=== PATIENT | male | born 1950 | race Caucasian/White ===

== ENCOUNTER 2016-02-10 08:04 | Emergency (ER) | payer MEDICARE ==
[2016-02-10 08:12] VITALS: BP 153/95; PULSE 92; RESP 18; TEMP 97.9; O2SAT 100
== END 2016-02-10 09:09 | disposition home or self-care (01) | DRG 607 ==
LOC: ED 08:04
DX: L90.5 Scar conditions and fibrosis of skin (principal); E11.9 Type 2 diabetes mellitus without complications
CPT/HCPCS: 99282

== ENCOUNTER 2016-04-26 12:54 | Emergency (ER) | payer MEDICARE ==
[2016-04-26 12:12] LABS: ALBUMIN 2.9 gm/dl (3.4-5.0); CALCIUM 8.4 mg/dl (8.5-10.1); POTASSIUM 4.4 mMol/L (3.5-5.1)
[2016-04-26] MEDS ORDERED: SODIUM CHLORIDE 0.9% 1000ML 1,000 ML IV NR (13:45)
[2016-04-26] MEDS ORDERED: SODIUM CHLORIDE 0.9% FLUSH 10 ML SOL IV PRN (13:55)
[2016-04-26 13:58] LABS: MAGNESIUM 1.7 mg/dl (1.8-2.4); PHOSPHORUS 3.6 mg/dl (2.6-4.7)
[2016-04-26 14:05] LABS: ABG PH 7.46 (7.35-7.45)
[2016-04-26] MEDS ORDERED: ACETAMINOPHEN 500 MG 500 MG TAB PO ONE (14:09)
[2016-04-26] MEDS ORDERED: ACETAMINOPHEN 500 MG 500 MG TAB ONE (14:11)
[2016-04-26 15:35] LABS: HEMOGLOBIN A1C 11.8 % (4.8-6.0)
[2016-04-26 15:41] VITALS: O2SAT 100
[2016-04-26 15:44] VITALS: BP 99/53; PULSE 92; RESP 20; TEMP 99.3
== END 2016-04-26 15:33 | disposition home or self-care (01) | DRG 638 ==
LOC: ED 12:54
DX: E11.65 Type 2 diabetes mellitus with hyperglycemia (principal); E87.1 Hypo-osmolality and hyponatremia; E11.621 Type 2 diabetes mellitus with foot ulcer; L97.821 Non-pressure chronic ulcer of other part of left lower leg limited to breakdown of skin; L97.811 Non-pressure chronic ulcer of other part of right lower leg limited to breakdown of skin; L97.512 Non-pressure chronic ulcer of other part of right foot with fat layer exposed; L03.031 Cellulitis of right toe
CPT/HCPCS: 36600; 73630; 80048; 82040; 82803; 82962; 83036; 83735; 84100; 96365; 99214; 99284

== ENCOUNTER 2016-04-27 11:40 | Inpatient (IN) | payer MEDICARE ==
[2016-04-27 12:27] LABS: HEMATOCRIT 37 % (39-53); MEAN CORPUSCULAR HGB CONC 34.6 gm/dl (32.0-36.0); MEAN CORPUSCULAR VOLUME 86 fL (80-100)
[2016-04-27 12:36] LABS: ALBUMIN 2.8 gm/dl (3.4-5.0); CALCIUM 8.1 mg/dl (8.5-10.1); POTASSIUM 4.4 mMol/L (3.5-5.1)
[2016-04-27] MEDS ORDERED: PATIENT EDUCATION 1 MISC PRN (13:07)
[2016-04-27] MEDS ORDERED: VANCOMYCIN HYDROCHLORIDE 500 MG PDS IV ONE (13:40)
[2016-04-27] MEDS ORDERED: SODIUM CHLORIDE 0.9% 250 ML 250 ML IV ONE (13:41)
[2016-04-27] MEDS ORDERED: HUMALOG PEN 100 U/ML SC STA (13:51)
[2016-04-27 14:02] LABS: BASOPHILS % (MANUAL) 0 % (0-3); EOSINOPHILS % (MANUAL) 0 % (0-9); LYMPHOCYTES % (MANUAL) 11 % (10-50); NORMAL RBCS PRESENT
[2016-04-27] MEDS: VANCOMYCIN HCL 500 MG PDS 1,000 MG in SODIUM CHLORIDE 0.9% 250 ML 250 ML IV SCH (14:02)
[2016-04-27] MEDS: ENOXAPARIN 80 MG SOL SC SCH (14:03)
[2016-04-27] MEDS: TRAMADOL HYDROCHLORIDE 50 MG TAB PO PRN (14:12)
[2016-04-27] MEDS: PIPERACILLIN/TAZOBACT 3.375 GM 4.5 GM in SODIUM CHLORIDE 0.9% 100 ML 100 ML IV SCH ×2 (15:30→20:33)
[2016-04-27] MEDS: SODIUM CHLORIDE 0.9% 1000ML 1,000 ML IV SCH (15:46)
[2016-04-27] MEDS: HUMALOG PEN 100 U/ML SC SCH ×2 (17:14→20:43)
[2016-04-27] MEDS: METFORMIN HYDROCHLORIDE 500 MG TAB PO SCH (17:15)
[2016-04-27] MEDS ORDERED: PIPERACILLIN/TAZOBACT 3.375 GM PDS IV ONE (20:15)
[2016-04-28] MEDS: SODIUM CHLORIDE 0.9% 1000ML 1,000 ML IV SCH ×3 (01:20→22:06)
[2016-04-28] MEDS ORDERED: VANCOMYCIN HYDROCHLORIDE 500 MG PDS IV ONE (01:22)
[2016-04-28] MEDS ORDERED: SODIUM CHLORIDE 0.9% 250 ML 250 ML IV ONE (01:22)
[2016-04-28] MEDS: VANCOMYCIN HCL 500 MG PDS 1,000 MG in SODIUM CHLORIDE 0.9% 250 ML 250 ML IV SCH ×2 (01:43→14:27)
[2016-04-28] MEDS ORDERED: PIPERACILLIN/TAZOBACT 3.375 GM PDS IV ONE ×2 (03:07→21:46)
[2016-04-28] MEDS ORDERED: SODIUM CHLORIDE 0.9% 100 ML 100 ML IV ONE ×2 (03:07→21:46)
[2016-04-28] MEDS: PIPERACILLIN/TAZOBACT 3.375 GM 4.5 GM in SODIUM CHLORIDE 0.9% 100 ML 100 ML IV SCH ×4 (03:27→21:57)
[2016-04-28] MEDS: TRAMADOL HYDROCHLORIDE 50 MG TAB PO PRN ×3 (03:34→22:05)
[2016-04-28 07:19] LABS: CALCIUM 7.8 mg/dl (8.5-10.1)
[2016-04-28] MEDS: ENOXAPARIN 80 MG SOL SC SCH (08:23)
[2016-04-28] MEDS: HUMALOG PEN 100 U/ML SC SCH ×4 (08:23→22:06)
[2016-04-28] MEDS ORDERED: GLIPIZIDE 5 MG TAB PO SCH (09:00)
[2016-04-28] MEDS: METFORMIN HYDROCHLORIDE 500 MG TAB PO SCH ×2 (09:36→18:33)
[2016-04-28] MEDS: GLIPIZIDE 5 MG TAB PO SCH ×2 (09:37→22:07)
[2016-04-29] MEDS: SODIUM CHLORIDE 0.9% 1000ML 1,000 ML IV SCH ×2 (00:07→04:31)
[2016-04-29] MEDS ORDERED: SODIUM CHLORIDE 0.9% 250 ML 250 ML IV ONE (02:38)
[2016-04-29] MEDS ORDERED: VANCOMYCIN HYDROCHLORIDE 500 MG PDS IV ONE (02:38)
[2016-04-29] MEDS: VANCOMYCIN HCL 500 MG PDS 1,000 MG in SODIUM CHLORIDE 0.9% 250 ML 250 ML IV SCH ×2 (02:45→15:02)
[2016-04-29] MEDS: PIPERACILLIN/TAZOBACT 3.375 GM 4.5 GM in SODIUM CHLORIDE 0.9% 100 ML 100 ML IV SCH ×4 (04:24→22:01)
[2016-04-29] MEDS: TRAMADOL HYDROCHLORIDE 50 MG TAB PO PRN ×2 (04:54→22:00)
[2016-04-29] MEDS: HUMALOG PEN 100 U/ML SC SCH ×4 (07:53→22:01)
[2016-04-29 08:00] LABS: POTASSIUM 4.3 mMol/L (3.5-5.1)
[2016-04-29 08:01] LABS: BASOPHILS % (AUTO) 1 % (0-3); EOSINOPHILS % (AUTO) 3 % (0-9); HEMATOCRIT 30 % (39-53); MEAN CORPUSCULAR HGB CONC 33.7 gm/dl (32.0-36.0); MEAN CORPUSCULAR VOLUME 88 fL (80-100); MONOCYTES % (AUTO) 9.7 % (0-12); NEUTROPHILS % (AUTO) 61.4 % (37-80)
[2016-04-29] MEDS: GLIPIZIDE 5 MG TAB PO SCH ×2 (09:45→22:00)
[2016-04-29] MEDS: METFORMIN HYDROCHLORIDE 500 MG TAB PO SCH ×2 (09:45→18:14)
[2016-04-29] MEDS: ENOXAPARIN 80 MG SOL SC SCH (09:46)
[2016-04-29] MEDS: SODIUM CHLORIDE 0.9% FLUSH 10 ML SOL IV SCH ×2 (15:01→21:59)
[2016-04-30] MEDS: VANCOMYCIN HCL 500 MG PDS 1,000 MG in SODIUM CHLORIDE 0.9% 250 ML 250 ML IV SCH ×2 (01:32→14:43)
[2016-04-30] MEDS: SODIUM CHLORIDE 0.9% FLUSH 10 ML SOL IV SCH ×5 (01:32→21:25)
[2016-04-30] MEDS: PIPERACILLIN/TAZOBACT 3.375 GM 4.5 GM in SODIUM CHLORIDE 0.9% 100 ML 100 ML IV SCH ×4 (02:38→21:25)
[2016-04-30] MEDS: TRAMADOL HYDROCHLORIDE 50 MG TAB PO PRN ×3 (06:24→21:25)
[2016-04-30] MEDS: HUMALOG PEN 100 U/ML SC SCH ×4 (08:52→21:39)
[2016-04-30] MEDS: ENOXAPARIN 80 MG SOL SC SCH (10:01)
[2016-04-30] MEDS: METFORMIN HYDROCHLORIDE 500 MG TAB PO SCH ×2 (10:01→18:54)
[2016-04-30] MEDS: GLIPIZIDE 5 MG TAB PO SCH ×2 (10:02→21:25)
[2016-04-30] MEDS ORDERED: FAMOTIDINE 20 MG TAB ONE (16:49)
[2016-05-01] MEDS: VANCOMYCIN HCL 500 MG PDS 1,000 MG in SODIUM CHLORIDE 0.9% 250 ML 250 ML IV SCH ×2 (01:30→14:06)
[2016-05-01] MEDS: SODIUM CHLORIDE 0.9% FLUSH 10 ML SOL IV SCH ×2 (03:01→11:46)
[2016-05-01] MEDS: PIPERACILLIN/TAZOBACT 3.375 GM 4.5 GM in SODIUM CHLORIDE 0.9% 100 ML 100 ML IV SCH ×3 (03:01→15:22)
[2016-05-01] MEDS: TRAMADOL HYDROCHLORIDE 50 MG TAB PO PRN ×2 (03:44→14:26)
[2016-05-01] MEDS: HUMALOG PEN 100 U/ML SC SCH ×2 (06:38→11:44)
[2016-05-01] MEDS: METFORMIN HYDROCHLORIDE 500 MG TAB PO SCH (08:22)
[2016-05-01] MEDS: GLIPIZIDE 5 MG TAB PO SCH (08:25)
[2016-05-01] MEDS: ENOXAPARIN 80 MG SOL SC SCH (08:27)
[2016-05-01 09:28] VITALS: BP 113/68; PULSE 73; RESP 20; TEMP 97.7; O2SAT 96
[2016-05-01] MEDS ORDERED: PIPERACILLIN/TAZOBACT 3.375 GM PDS IV ONE (15:13)
[2016-05-01] MEDS ORDERED: SODIUM CHLORIDE 0.9% 100 ML 100 ML IV ONE (15:14)
== END 2016-05-01 15:55 | disposition home or self-care (01) | DRG 603 ==
LOC: ACUTE CARE 11:42
PROVIDERS: ADMIT Family Medicine; ATTEND Family Medicine
DX: L03.031 Cellulitis of right toe (principal); E11.621 Type 2 diabetes mellitus with foot ulcer; L02.611 Cutaneous abscess of right foot; L97.512 Non-pressure chronic ulcer of other part of right foot with fat layer exposed; E11.65 Type 2 diabetes mellitus with hyperglycemia; Z79.84 Long term (current) use of oral hypoglycemic drugs
CPT/HCPCS: 36415; 80048; 80053; 82962; 85007; 85025; 85027; 87070; 87075; 87077; 87186; 99070; 99221; J1650; J1815; J2543; J3370; A6232

== ENCOUNTER 2016-05-02 17:38 | Emergency (ER) | payer MEDICARE ==
[2016-05-02 17:50] VITALS: TEMP 98.8
[2016-05-02 18:18] VITALS: BP 101/57; PULSE 84; RESP 16; O2SAT 98
== END 2016-05-02 18:24 | disposition home or self-care (01) | DRG 603 ==
LOC: ED 17:38
DX: L03.031 Cellulitis of right toe (principal)
CPT/HCPCS: 99282

== ENCOUNTER 2016-07-29 15:02 | Emergency (ER) | payer MEDICARE ==
[2016-07-29 15:19] VITALS: BP 170/104; PULSE 81; RESP 15; TEMP 97.1; O2SAT 97
== END 2016-07-29 16:10 | disposition home or self-care (01) | DRG 639 ==
LOC: ED 15:02
DX: E11.621 Type 2 diabetes mellitus with foot ulcer (principal); L97.529 Non-pressure chronic ulcer of other part of left foot with unspecified severity; L08.9 Local infection of the skin and subcutaneous tissue, unspecified
CPT/HCPCS: 99282; 99283; A6232

== ENCOUNTER 2016-09-09 14:58 | Emergency (ER) | payer MEDICARE ==
[2016-09-09 15:09] VITALS: RESP 16; TEMP 98.4
[2016-09-09 17:13] VITALS: BP 113/62; PULSE 91; O2SAT 99
== END 2016-09-09 17:10 | disposition home or self-care (01) | DRG 639 ==
LOC: ED 14:58
DX: E11.621 Type 2 diabetes mellitus with foot ulcer (principal); L97.529 Non-pressure chronic ulcer of other part of left foot with unspecified severity
CPT/HCPCS: 99283

== ENCOUNTER 2016-09-27 11:22 | Emergency (ER) | payer MEDICARE, MEDICAID ==
[2016-09-27] MEDS ORDERED: SODIUM CHLORIDE 0.9% 1000ML 1,000 ML IV ONE (12:11)
[2016-09-27 12:37] LABS: BASOPHILS % (AUTO) 1 % (0-3); EOSINOPHILS % (AUTO) 3 % (0-9); HEMATOCRIT 32 % (39-53); MEAN CORPUSCULAR HGB CONC 34.6 gm/dl (32.0-36.0); MEAN CORPUSCULAR VOLUME 87 fL (80-100); MONOCYTES % (AUTO) 9.4 % (0-12); NEUTROPHILS % (AUTO) 66.7 % (37-80)
[2016-09-27 12:57] LABS: ALBUMIN 2.7 gm/dl (3.4-5.0); ALT 12 IU/L (14-63); CALCIUM 8.4 mg/dl (8.5-10.1); GLOM FILT RATE 102 mL/min (>60); MAGNESIUM 1.4 mg/dl (1.8-2.4); SODIUM 135 mMol/L (136-145)
[2016-09-27] MEDS ORDERED: METRONIDAZOLE 500 MG (PREMIX) 500 MG/100 ML SOL IV ONE (13:02)
[2016-09-27] MEDS ORDERED: VANCOMYCIN HCL 500 MG PDS 1,000 MG in SODIUM CHLORIDE 0.9% 250 ML 250 ML IV SCH (13:15)
[2016-09-27] MEDS ORDERED: PIPERACILLIN/TAZOBACT 3.375 GM 3.375 GM in SODIUM CHLORIDE 0.9% 100 ML 100 ML IV SCH (13:15)
[2016-09-27] MEDS ORDERED: PIPERACILLIN/TAZOBACT 3.375 GM PDS IV ONE (13:42)
[2016-09-27] MEDS ORDERED: ONDANSETRON HCL 4 MG/2 ML 4 MG in SODIUM CHLORIDE 0.9% 100 ML 100 ML IV ONE (15:18)
[2016-09-27] MEDS ORDERED: MORPHINE SULFATE 10 MG/ML SOL IV ONE (15:18)
[2016-09-27] MEDS ORDERED: MORPHINE SULFATE 10 MG/ML SOL ONE (15:27)
[2016-09-27] MEDS: SODIUM CHLORIDE 0.9% FLUSH 10 ML SOL IV PRN ×2 (15:32→15:42)
[2016-09-27] MEDS ORDERED: ONDANSETRON HCL 4 MG/2 ML SOL IV ONE (15:36)
[2016-09-27] MEDS ORDERED: ONDANSETRON HCL 4 MG/2 ML SOL ONE (15:37)
[2016-09-27] MEDS ORDERED: VANCOMYCIN HYDROCHLORIDE 500 MG PDS IV ONE (18:53)
[2016-09-27 19:56] VITALS: TEMP 99.8; O2SAT 98
[2016-09-27 20:06] VITALS: BP 112/50; PULSE 79; RESP 14
== END 2016-09-27 19:18 | disposition short-term general hospital (02) | DRG 540 ==
LOC: ED 11:22
DX: M86.172 Other acute osteomyelitis, left ankle and foot (principal); L03.116 Cellulitis of left lower limb; E11.621 Type 2 diabetes mellitus with foot ulcer; E11.65 Type 2 diabetes mellitus with hyperglycemia; L97.819 Non-pressure chronic ulcer of other part of right lower leg with unspecified severity; B95.62 Methicillin resistant Staphylococcus aureus infection as the cause of diseases classified elsewhere; L97.529 Non-pressure chronic ulcer of other part of left foot with unspecified severity
CPT/HCPCS: 73720; 80053; 83735; 84484; 85025; 87040; 87070; 87077; 87186; 93005; 99291; J2270; J2405; J2543; J3370; A9575